=== PATIENT | male | born 2000 | race Caucasian/White ===

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

== ENCOUNTER 2019-01-09 20:37 | Emergency (ER) | payer OTHER ==
[2019-01-09 20:53] VITALS: BP 144/81
[2019-01-09] MEDS ORDERED: Ibuprofen TAB* 600 MG PO ONE (20:59)
[2019-01-09] MEDS ORDERED: Cephalexin CAP* 500 MG PO ONE (20:59)
--- NOTE | 2019-01-09 21:05 | UC ---
Skin Complaint HPI - HPI Summary HPI Summary: Patient is a 18-year-old male who presents to the urgent care with chief complaint of having pain in the left gluteus. Patient is be having the symptoms for the last 4 days. Symptoms are getting worse. She denies any fever or chills. He has no other complaints. - History of Current Complaint Chief Complaint: UCSkin Time Seen by Provider: 01/09/19 20:55 Stated Complaint: LUMP ON SKIN Hx Obtained From: Patient Onset/Duration: Gradual Onset Skin Exposure Onset/Duration: Days Ago Onset Severity: Mild Current Severity: Moderate Pain Intensity: 5 - Allergy/Home Medications Allergies/Adverse Reactions: Allergies Allergy/AdvReac Type Severity Reaction Status Date / Time Sulfa (Sulfonamide Allergy Swelling Verified 01/09/19 20:52 Antibiotics) BERMUDA GRASS Allergy Rash Uncoded 01/09/19 20:52 PMH/Surg Hx/FS Hx/Imm Hx Previously Healthy: Yes - Surgical History Surgical History: Yes Surgery Procedure, Year, and Place: YOUNG CHILD t & a [facility] [place]. YOUNG CHILD bilat ear tubes [facility] [place]. Jul 2013 appendectomy [facility] [place]. 04/2015 LEFT KNEE [facility] [place] - Family History Known Family History: Positive: Diabetes - mothers side - Social History Alcohol Use: Rare Substance Use Type: None Smoking Status (MU): Former Smoker Have You Smoked in the Last Year: No Household Exposure Type: Cigarettes - Immunization History Vaccination Up to Date: Yes Review of Systems All Other Systems Reviewed And Are Negative: Yes Constitutional: Positive: Negative Skin: Positive: Other - Pain and redness in the left gluteus Eyes: Positive: Negative ENT: Positive: Negative Respiratory: Positive: Negative Cardiovascular: Positive: Negative Gastrointestinal: Positive: Negative Genitourinary: Positive: Negative Motor: Positive: Negative Neurovascular: Positive: Negative Musculoskeletal: Positive: Negative Neurological: Positive: Negative Psychological: Positive: Negative Is Patient Immunocompromised?: No Physical Exam - Summary Physical Exam Summary: VITAL SIGNS: Reviewed. GENERAL: Patient is a well developed and nourished he male who is lying comfortably in the stretcher. Patient is not in any acute respiratory distress. HEAD AND FACE: No signs of trauma. No ecchymosis, hematomas or skull depressions. No sinus tenderness. EYES: PERRLA, EOMI x 2, No injected conjunctiva, no nystagmus. EARS: Hearing grossly intact. Ear canals and tympanic membranes are within normal limits. MOUTH: Oropharynx within normal limits. NECK: Supple, trachea is midline, no adenopathy, no JVD, no carotid bruit, no c- spine tenderness, neck with full ROM. CHEST: Symmetric, no tenderness at palpation LUNGS: Clear to auscultation bilaterally. No wheezing or crackles. CVS: Regular rate and rhythm, S1 and S2 present, no murmurs or gallops appreciated. ABDOMEN: Soft, non-tender. No signs of distention. No rebound no guarding, and no masses palpated. Bowel sounds are normal. EXTREMITIES: FROM in all major joints, no edema, no cyanosis or clubbing. NEURO: Alert and oriented x 3. No acute neurological deficits. Speech is normal and follows commands. SKIN: Dry and warm. small area of induration in the left gluteus previous there is no abscess formation. Triage Information Reviewed: Yes Appearance: Well-Appearing Vital Signs: Initial Vital Signs Temp 99.3 F 01/09/19 20:48 Pulse 103 01/09/19 20:48 Resp 16 01/09/19 20:48 BP 144/81 01/09/19 20:48 Pulse Ox 99 01/09/19 20:48 Vital Signs Reviewed: Yes Course/Dx - Course Course Of Treatment: Patient hasn't small area of induration in the left gluteus. There is no abscess formation. Patient was started on Keflex and ibuprofen. He was instructed that if he develops increasing pain, more redness we have to make sure that the patient has not developed any type of abscess. She understands and agrees. He needs to follow with the primary care physician in the next 2-3 days. - Diagnoses Provider Diagnosis: Cellulitis Discharge - Sign-Out/Discharge Documenting (check all that apply): Patient Departure All imaging exams completed and their final reports reviewed: No Studies - Discharge Plan Condition: Stable Disposition: HOME Prescriptions: Cephalexin CAP* [Keflex CAP*] 500 mg PO QID #40 cap Patient Education Materials: Cellulitis (ED) Referrals: [facility] PHYSICIAN REFERRAL [Outside] No Primary Care Phys,NOPCP [Primary Care Provider] - Additional Instructions: Take medications as instructed Increase your fluid intake F/U with PCP in the next 2-3 days Return to the if symptoms worsen - Billing Disposition and Condition Condition: STABLE Disposition: Home
== END 2019-01-09 21:10 | disposition home or self-care (01) ==
LOC: UCEAST 20:37
DX: L03.317 Cellulitis of buttock (principal); Z87.891 Personal history of nicotine dependence; Z88.2 Allergy status to sulfonamides
CPT/HCPCS: 99212; A9270-GY; G0463